=== PATIENT | female | born 1985 | race African-American/Black ===

== ENCOUNTER 2020-03-17 11:37 | Emergency (ER) | payer OTHER ==
[~2020-03-17] VITALS: Ht 170.2 cm; Wt 85.5 kg
[2020-03-17 12:10] VITALS: TEMP 97.6
[2020-03-17] MEDS ORDERED: TYLENOL 500MG500 MG PO (12:38)
[2020-03-17 13:49] VITALS: BP 110/60; PULSE 80
== END 2020-03-17 13:51 | disposition home or self-care (01) ==
LOC: COL.ER 11:37
DX: G89.18 Other acute postprocedural pain (principal)

== ENCOUNTER → 2021-03-23 | Outpatient (CLI) | payer OTHER ==
[~2021-03-23] MED LIST: TYLENOL 500MG500 MG PO
== END ==
LOC: COL.RAD 09:19
DX: D25.9 Leiomyoma of uterus, unspecified (principal); N83.209 Unspecified ovarian cyst, unspecified side